=== PATIENT | female | born 1960 | race Caucasian/White ===

== ENCOUNTER 2020-06-07 19:49 | Emergency (ER) | payer MEDICAID ==
[2020-06-07] MEDS ORDERED: Methocarbamol 500 MG Tab PO ONE (20:22)
[2020-06-07] MEDS ORDERED: Ketorolac 10 MG Tab PO ONE (20:22)
--- NOTE | 2020-06-07 20:28 | EDM.PDOC ---
ED HPI GENERAL MEDICAL PROBLEM - General Chief Complaint: Back Pain or Injury Stated Complaint: PULLED MUSCLE IN SHOULDER, WITH BACK PAIN Time Seen by Provider: 06/07/20 20:20 Source of Information: Reports: Patient History Limitations: Reports: No Limitations - History of Present Illness INITIAL COMMENTS - FREE TEXT/NARRATIVE: Amaya is a 59-year-old female presenting to the ED for evaluation of ongoing left-sided neck and upper back pain. Patient reports that the symptoms started around 3 weeks ago and have continued to worsen. She describes the pain starting on the posterior lateral left neck radiating out to the left shoulder and tip of the scapula. She has had previous episodes of this. 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 She denies any numbness or tingling. She states that she has had one episode of stool incontinence because she has been holding it in because of the pain. She denies any rectal numbness or loss of bladder control. She denies any low back pain. She has had some numbness in her arms with sleeping. This typically subsides when she is up and around. She denies any change in strength. Left Shoulder Pain Score (Numeric/FACES): 3 - Related Data Allergies Allergy/AdvReac Type Severity Reaction Status Date / Time No Known Allergies Allergy Verified 06/07/20 20:05 Home Meds: Home Meds Furosemide 20 mg PO DAILY 06/07/20 [History] Gabapentin [Neurontin] 100 mg PO DAILY 06/07/20 [History] Losartan Potassium 100 mg PO DAILY 06/07/20 [History] Nicotine [Habitrol] 1 patch TRDERM DAILY 06/07/20 [History] Omeprazole 20 mg PO DAILY 06/07/20 [History] Triamcinolone Acetonide 15 gm TP DAILY 06/07/20 [History] busPIRone [Buspar] 15 mg PO DAILY 06/07/20 [History] methocarbamoL [Methocarbamol] 750 mg PO QID #28 tablet 06/07/20 [Rx] Past Medical History Cardiovascular History: Reports: Hypertension Gastrointestinal History: Reports: GERD, Irritable Bowel Syndrome Genitourinary History: Reports: Chronic 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: Musculoskeletal History: Reports: Arthritis, Back Pain, Chronic, Fracture, Fibr omyalgia, Neck Pain, Chronic Other Musculoskeletal History: fx arm, collarbone Neurological History: Reports: Concussion, Migraines Psychiatric History: Reports: Anxiety, Depression, PTSD, Other (See Below) Other Psychiatric History: personality disorder Endocrine/Metabolic History: Reports: Hypothyroidism Immunologic History: Reports: Immunosuppression Other Immunologic History: hepatitis C - Infectious Disease History Infectious Disease History: Reports: Chicken Pox, Hepatitis C - Past Surgical History HEENT Surgical History: Reports: Naso-Sinus Surgery, Oral Surgery, Other (See Below) Other HEENT Surgeries/Procedures: jaw surgery GI Surgical History: Reports: Cholecystectomy Female Surgical History: Reports: Section, Tubal Ligation Social & Family History - Tobacco Use Tobacco Use Status *Q: Former Tobacco User Used Tobacco, but Quit: Yes Month/Year Tobacco Last Used: nov 2019 - Caffeine Use Caffeine Use: Reports: Soda - Recreational Drug Use Recreational Drug Use: Yes Drug Use in Last 12 Months: No Recreational Drug Type: Reports: Amphetamines (Speed), Cocaine Recreational Drug Use Frequency: Not Used In Over 6 Months ED ROS GENERAL - Review of Systems Review Of Systems: See Below Constitutional: Reports: No Symptoms HEENT: Reports: No Symptoms Respiratory: Reports: No Symptoms Cardiovascular: Reports: No Symptoms Endocrine: Reports: No Symptoms GI/Abdominal: Reports: Stool Incontinence (1 episode) : Reports: No Symptoms Musculoskeletal: Reports: Neck Pain (Left-sided pain radiating to the tip of the scapula and left shoulder), Shoulder Pain (Left), Back Pain (Upper back) Skin: Reports: No Symptoms Neurological: Reports: No Symptoms, Tingling (Intermittent tingling when she awakes from sleeping in both upper extremities.) Psychiatric: Reports: No Symptoms Hematologic/Lymphatic: Reports: No Symptoms Immunologic: Reports: No Symptoms ED EXAM, UPPER BACK/NECK PAIN - Physical Exam Exam: See Below Exam Limited By: No Limitations General Appearance: Alert, No Apparent Distress Eye Exam: Bilateral Eye: EOMI, PERRL Throat/Mouth Exam: Normal Inspection, Normal Voice, No Airway Compromise Head Exam: Atraumatic, Normocephalic Neck Exam: Full Range of Motion, Muscle Spasm (Trapezius muscle spasm), Paraspinous Muscle Tender (Left trapezius muscle spasm and tenderness), Tenderness (Tenderness over the left lateral neck going out to the shoulder), Tender Lateral. No: Spinous Processes Tender, Stiff Neck, Tender Midline Nexus Criteria: No: Posterior, Midline Cervical Tenderness, Evidence of Intoxication, Altered Level of Consciousness, Focal Neurological Deficit, Painful Distraction Injuries Cardiovascular/Respiratory: Regular Rate, Rhythm, Normal Peripheral Pulses, Normal Breath Sounds Back Exam: Normal Inspection, Full Range of Motion. No: Paraspinal Tenderness, Vertebral Tenderness Extremities: Normal Inspection, Normal Range of Motion Neurologic: fitter welder II-XII nml As Tested, No Motor/Sensory Deficits, Alert, Normal Mood/Affect, Oriented x 3 DTR: 2+: Bicep (R), Bicep (L), Tricep (R), Tricep (L), Patella (R), Patella (L), Achilles (R), Achilles (L) Psychiatric: Normal Affect, Normal Mood Skin Exam: Normal Color, Warm/Dry Lymphatic: No Adenopathy Course - Vital Signs Last Recorded V/S: Last Vital Signs Temp 36.0 C L 06/07/20 20:14 Pulse 99 06/07/20 20:14 Resp 16 06/07/20 20:14 BP 156/82 H 06/07/20 20:14 Pulse Ox 99 06/07/20 20:14 - Re-Assessments/Exams Free Text/Narrative Re-Assessment/Exam: 06/07/20 20:26 Amaya has significant paraspinal muscle spasm involving the left trapezius muscle. This is causing upper back pain radiating into her left shoulder. She has no neurologic deficits. She had one episode of stool incontinence, however, this was not likely due to a neurologic problem rather her holding it in due to pain. She reports she is not able to take aspirin or Tylenol because of her liver problem. We will treat this with methocarbamol 750 mg 4 times daily and Toradol 10 mg 4 times daily. Have instructed her to the ice the area for 15 to 20 minutes every couple hours she is awake. If not improving over 4 to 5 days, she may want to consider physical therapy with deep tissue massage and ultrasound. She should follow-up with her primary care provider to discuss this if not improving. At this time she is suitable for discharge in satisfactory condition. Indications return to the ED were discussed. Departure - Departure Time of Disposition: 20:28 Disposition: Home, Self-Care 01 Clinical Impression: Trapezius muscle spasm, Upper back pain on left side - Discharge Information Instructions: Muscle Strain, [id number] Referrals: Ferny Hernandes MD [Primary Care Provider] - Care Plan Goals: We are placing you on methocarbamol 50 mg 4 times a day for muscle spasm and Toradol 10 mg 4 times a day for pain. Not improving over the next 4 to 5 days, I would recommend following up with your primary care provider as you may benefit from physical therapy with deep tissue ultrasound and massage. Turn to the ED for reevaluation should you develop any significant numbness or weakness. Sepsis Event Note (ED) - Evaluation Sepsis Screening Result: No Definite Risk - Focused Exam Vital Signs: Vital Signs Temp Pulse Resp BP Pulse Ox 06/07/20 20:14 36.0 C L 99 16 156/82 H 99 - Problem List & Annotations (1) Trapezius muscle spasm SNOMED Code(s): 263582427063 Code(s): M62.838 - OTHER MUSCLE SPASM Status: Acute Priority: Medium Current Visit: Yes (2) Upper back pain on left side SNOMED Code(s): 272111836 Code(s): M54.9 - DORSALGIA, UNSPECIFIED Status: Acute Priority: Medium Current Visit: Yes - Problem List Review Problem List Initiated/Reviewed/Updated: Yes
== END 2020-06-07 20:38 | disposition home or self-care (01) ==
LOC: JP.ED 19:49
DX: M62.838 Other muscle spasm (principal); K21.9 Gastro-esophageal reflux disease without esophagitis; I10 Essential (primary) hypertension; Z87.891 Personal history of nicotine dependence; Z79.899 Other long term (current) drug therapy
CPT/HCPCS: 99283; A9270